=== PATIENT | female | born 1940 | race Caucasian/White ===

== ENCOUNTER 2017-04-25 12:29 | Emergency (ER) | payer MEDICARE, OTHER ==
[~2017-04-25 12:29] MED LIST: DRON400T2 PO; POTA10CA44 PO; WARF-67 PO; WARF2.5T85 PO
[2017-04-25 13:30] LABS: BASOPHILS % (AUTO) 1.1 % (0.0-5.0); EOSINOPHILS % (AUTO) 1.2 % (0.0-8.0); HEMATOCRIT 36.8 % (36-48); LYMPHOCYTES % (AUTO) 18.3 % (21.0-51.0); MEAN CORPUSCULAR HEMOGLOBIN 35.3 pg (27.0-33.0); MEAN CORPUSCULAR HGB CONC 34.3 g/dL (32.0-36.0); MEAN CORPUSCULAR VOLUME 102.9 fL (79-99); MONOCYTES % (AUTO) 8.4 % (3.0-13.0); PLATELET COUNT (AUTO) 188 K/uL (130-400); RED BLOOD CELL COUNT(AUTO) 3.57 MIL/uL (4.00-5.50); WHITE BLOOD COUNT (AUTO) 6.3 K/uL (4.8-10.8)
[2017-04-25 13:46] LABS: INR 2.7 (0.85-1.15); PROTHROMBIN TIME 27.8 SEC (9.6-11.6)
[2017-04-25 14:04] LABS: CREATININE 1.2 mg/dL (0.5-1.5); POTASSIUM 4.2 mmol/L (3.5-5.1)
[2017-04-25 14:08] LABS: ALBUMIN 3.6 g/dL (3.5-5.0); BILIRUBIN,TOTAL 0.5 mg/dL (0.2-1.0); TOTAL PROTEIN, SERUM 7.5 g/dL (6.0-8.3)
[2017-04-25] MEDS ORDERED: OCTYL 2-CYANOACRYLATE 1 EACH TP ONE (14:08)
[2017-04-25] MEDS ORDERED: TRAMADOL HCL 50 MG TABLET ONE (16:14)
== END 2017-04-25 16:19 | disposition home or self-care (01) ==
LOC: EDH 12:29
DX: S52.501A Unspecified fracture of the lower end of right radius, initial encounter for closed fracture (principal); S82.001A Unspecified fracture of right patella, initial encounter for closed fracture; S00.83XA Contusion of other part of head, initial encounter; S80.212A Abrasion, left knee, initial encounter; S50.812A Abrasion of left forearm, initial encounter; Z95.0 Presence of cardiac pacemaker; Z88.0 Allergy status to penicillin; W01.0XXA Fall on same level from slipping, tripping and stumbling without subsequent striking against object, initial encounter; Y93.89 Activity, other specified; Y92.89 Other specified places as the place of occurrence of the external cause; Y99.8 Other external cause status
CPT/HCPCS: 29125; 29505; 36415; 70450; 72125; 73110; 73562; 80053; 85025; 85610; 85730

== ENCOUNTER → 2017-08-18 | Outpatient (CLI) | payer MEDICARE | END | disposition home or self-care (01) | LOC: SHCH 10:57 | PROVIDERS: ATTEND Internal Medicine Cardiovascular Disease | DX: I34.0 Nonrheumatic mitral (valve) insufficiency (principal); Z95.0 Presence of cardiac pacemaker; Z95.2 Presence of prosthetic heart valve | CPT/HCPCS: 93306 ==

== ENCOUNTER → 2017-11-26 | Outpatient (CLI) | payer MEDICARE ==
[2017-11-26 10:55] LABS: ALBUMIN 3.6 g/dL (3.5-5.0); BILIRUBIN,TOTAL 0.7 mg/dL (0.2-1.0); CREATININE 1.1 mg/dL (0.5-1.5); POTASSIUM 4.4 mmol/L (3.5-5.1); TOTAL PROTEIN, SERUM 7.8 g/dL (6.0-8.3)
== END | disposition home or self-care (01) ==
LOC: LAB 09:53
PROVIDERS: ATTEND Nurse Practitioner Family
DX: R20.9 Unspecified disturbances of skin sensation (principal)
CPT/HCPCS: 36415; 80053; 82330

== ENCOUNTER → 2018-03-04 | Outpatient (CLI) | payer MEDICARE ==
[~2018-03-04] VITALS: Ht 157.5 cm; Wt 44.9 kg
[~2018-03-04] MED LIST changes: +REGADENOSON 0.4 MG/5 ML PF SYG IVP SCH
== END | disposition home or self-care (01) ==
LOC: SHCH 08:45
PROVIDERS: ATTEND Internal Medicine Cardiovascular Disease
DX: I25.10 Atherosclerotic heart disease of native coronary artery without angina pectoris (principal)
CPT/HCPCS: 78452; 93017; 96374; A9500 ×2; J2785

== ENCOUNTER 2018-03-23 05:28 | Observation (INO) | payer MEDICARE ==
[~2018-03-23] VITALS: Ht 157.5 cm; Wt 43.9 kg
[~2018-03-23 05:28] MED LIST changes: -REGADENOSON 0.4 MG/5 ML PF SYG IVP SCH
[2018-03-23 05:54] LABS: BILIRUBIN,URINE Negative (NEGATIVE); COLOR,URINE Yellow (YELLOW); GLUCOSE, URINE (UA) Negative (NEGATIVE); KETONES,URINE Trace mg/dL (NEGATIVE); LEUKOCYTE ESTERASE ,URINE Negative (NEGATIVE); NITRATE,URINE Negative (NEGATIVE); OCCULT BLOOD,URINE Negative (NEGATIVE); PH,URINE 8.5 (5.0-8.0); PROTEIN,URINE Negative (NEGATIVE)
[2018-03-23 05:55] LABS: APPEARANCE,URINE CLEAR (CLEAR)
[2018-03-23 06:00] LABS: BASOPHILS % (AUTO) 0.7 % (0.0-5.0); EOSINOPHILS % (AUTO) 0.4 % (0.0-8.0); HEMATOCRIT 38.2 % (36-48); LYMPHOCYTES % (AUTO) 10.1 % (21.0-51.0); MEAN CORPUSCULAR HEMOGLOBIN 34.6 pg (27.0-33.0); MEAN CORPUSCULAR VOLUME 101.8 fL (79-99); MONOCYTES % (AUTO) 8.2 % (3.0-13.0); NEUTROPHILS % (AUTO) 80.6 % (40.0-77.0); PLATELET COUNT (AUTO) 222 K/uL (130-400); RED BLOOD CELL COUNT(AUTO) 3.75 MIL/uL (4.00-5.50); RED CELL DISTRIBUTION WIDTH 12.5 % (11.0-15.5); WHITE BLOOD COUNT (AUTO) 7.6 K/uL (4.8-10.8)
[2018-03-23] MEDS ORDERED: SODIUM CHLORIDE 0.9% 1000ML 1,000 ML IV ONE (06:02)
[2018-03-23] MEDS ORDERED: ONDANSETRON HCL 4 MG/2 ML VIAL ONE (06:02)
[2018-03-23] MEDS ORDERED: MORPHINE SULFATE 4 MG/1ML SYG ONE (06:03)
[2018-03-23 06:11] LABS: CREATININE 1.1 mg/dL (0.5-1.5)
[2018-03-23 06:16] LABS: ALBUMIN 3.9 g/dL (3.5-5.0); BILIRUBIN,TOTAL 1.4 mg/dL (0.2-1.0)
[2018-03-23] MEDS ORDERED: ONDANSETRON ODT 4 MG TAB ONE (06:58)
[2018-03-23] MEDS ORDERED: KETOROLAC TROMETHAMINE 15MG/ML ONE (06:58)
[2018-03-23] MEDS ORDERED: LIDOCAINE HCL 2% VISCOUS 15 ML UDCUP ONE (07:20)
[2018-03-23] MEDS: SODIUM CHLORIDE 0.9% 1000ML 1,000 ML IV SCH (08:00)
[2018-03-23 09:06] VITALS: BP 128/60
[2018-03-23] MEDS ORDERED: DORZ10DR19 OU (12:06)
[2018-03-23] MEDS ORDERED: HYDR-3421 PO (12:06)
[2018-03-23] MEDS ORDERED: NETA2.5D OP (12:06)
[2018-03-23] MEDS ORDERED: METO-408 PO (12:06)
[2018-03-23] MEDS ORDERED: BENZ-51 PO (12:06)
[2018-03-23] MEDS ORDERED: TIMO.5OS OD (12:06)
[2018-03-23] MEDS ORDERED: AZIT250T9 PO (12:06)
[2018-03-23] MEDS ORDERED: LATA7.5D OU (12:06)
[2018-03-23] MEDS ORDERED: LORAZEPAM 1 MG TABLET PO PRN (12:30)
[2018-03-23 12:36] VITALS: BP 134/63
[2018-03-23] MEDS ORDERED: BENZONATATE 100 MG CAPSULE PO PRN (12:45)
[2018-03-23] MEDS ORDERED: WARF2.5T85 PO ×2 (15:17)
[2018-03-23 16:26] VITALS: BP 135/62
[2018-03-23] MEDS ORDERED: WARFARIN SODIUM 2.5 MG TAB PO SCH ×2 (16:39→19:32)
[2018-03-23] MEDS ORDERED: PHARMACY COMMUNICATION MISC SCH (16:45)
[2018-03-23] MEDS ORDERED: FOLI0.8C PO (16:55)
[2018-03-23 20:00] VITALS: BP 150/71
[2018-03-23] MEDS: METOPROLOL TARTRATE 25 MG TAB PO SCH (20:36)
[2018-03-23] MEDS: DRONEDARONE HYDROCHLORIDE 400 MG TABLET PO SCH (20:37)
[2018-03-23] MEDS: DORZOLAMIDE HCL OU SCH (20:46)
[2018-03-23] MEDS ORDERED: NETARSUDIL MESYLATE OP SCH (21:00)
[2018-03-23] MEDS ORDERED: HYDROXYZINE HCL 25 MG TABLET PO SCH (21:00)
[2018-03-23] MEDS ORDERED: LATANOPROST 2.5 ML DROPS OU SCH (21:00)
[2018-03-24] VITALS: BP 116/63
[2018-03-24 03:51] VITALS: BP 121/61
[2018-03-24 05:12] LABS: HEMATOCRIT 32.3 % (36-48); MEAN CORPUSCULAR HEMOGLOBIN 35.2 pg (27.0-33.0); MEAN CORPUSCULAR HGB CONC 34.2 g/dL (32.0-36.0); PLATELET COUNT (AUTO) 173 K/uL (130-400); RED BLOOD CELL COUNT(AUTO) 3.14 MIL/uL (4.00-5.50); RED CELL DISTRIBUTION WIDTH 12.5 % (11.0-15.5); WHITE BLOOD COUNT (AUTO) 5.2 K/uL (4.8-10.8)
[2018-03-24 05:24] LABS: BILIRUBIN,TOTAL 1.1 mg/dL (0.2-1.0); CREATININE 0.9 mg/dL (0.5-1.5); POTASSIUM 3.7 mmol/L (3.5-5.1); TOTAL PROTEIN, SERUM 6.4 g/dL (6.0-8.3)
[2018-03-24] MEDS ORDERED: PANTOPRAZOLE SODIUM 40 MG TABLET.DR PO SCH (07:30)
[2018-03-24 08:43] VITALS: BP 141/70
[2018-03-24] MEDS: DORZOLAMIDE HCL OU SCH (09:00)
[2018-03-24] MEDS: METOPROLOL TARTRATE 25 MG TAB PO SCH (09:00)
[2018-03-24] MEDS ORDERED: AZITHROMYCIN 250 MG TABLET PO SCH (09:00)
[2018-03-24] MEDS: DRONEDARONE HYDROCHLORIDE 400 MG TABLET PO SCH (09:16)
[2018-03-24 12:12] VITALS: BP 131/57
--- NOTE | 2018-03-24 14:29 | NUR ---
RD Screen - Low BMI, Coum Patient with BMI 17.7. Patient with Coumadin medication; Patient denies need for education. Patient with clear liquid diet with PO intake at 50-75%. Patient LBM 03/23/18. Patient reports no GI distress, however patient does have discomfort with NGT; NGT to be discontinued as per nursing. Patient monitored labs: Na 133, Ca 8.4, T. Bili 1.1, Alk Phos 45, Alb 3.0. RD to continue to monitor. Please notify RD as nutritional concerns arise. Thank you. Addendum: 03/24/18 at [address] RD Amended: Links added.
--- NOTE | 2018-03-24 14:35 | NUR ---
Warfarin Diet Education RD offered Warfarin diet education reference materials and handouts for patient revision. Patient refused and denied need for education as patient has received in the past. RD to follow-up. Please notify RD as nutritional concerns arise. Thank you. Addendum: 03/24/18 at [address] RD Amended: Links added.
[2018-03-24 15:42] VITALS: BP 119/60
[2018-03-24] MEDS: SODIUM CHLORIDE 0.9% 1000ML 1,000 ML IV SCH (17:20)
--- NOTE | 2018-03-24 19:30 | NUR ---
DISCHARGE PATIENT GIVEN DISCHARGE INSTRUCTIONS. PATIENT VERBALIZED UNDERSTANDING OF ALL EDUCATION GIVEN VIA TEACHBACK. INCLUDING FOLLOW UP APPOINTMENTS. IV DISCONTINUED, CATHETER INTACT. NO DISTRESS NOTED UPON DISCHARGE. ALL BELONGINGS TAKEN WITH. PATIENT LEFT VIA WHEELCHAIR TO PRIVATE CAR.
[2018-03-24] MEDS ORDERED: FOLIC ACID 1 MG TABLET PO SCH (21:00)
[2018-03-24] MEDS ORDERED: WARFARIN SODIUM 2.5 MG TAB PO SCH (21:00)
== END 2018-03-24 19:00 | disposition home or self-care (01) ==
LOC: EDH 05:28 → EDHIP 07:40 → 3BH 08:25
PROVIDERS: ADMIT Internal Medicine; ATTEND Internal Medicine
DX: K52.9 Noninfective gastroenteritis and colitis, unspecified (principal); I10 Essential (primary) hypertension; I05.9 Rheumatic mitral valve disease, unspecified; I48.91 Unspecified atrial fibrillation; K59.09 Other constipation; K80.20 Calculus of gallbladder without cholecystitis without obstruction; M43.10 Spondylolisthesis, site unspecified; K59.00 Constipation, unspecified; G47.00 Insomnia, unspecified; Z82.49 Family history of ischemic heart disease and other diseases of the circulatory system; Z83.3 Family history of diabetes mellitus; Z95.0 Presence of cardiac pacemaker; Z95.2 Presence of prosthetic heart valve; Z96.641 Presence of right artificial hip joint; Z88.0 Allergy status to penicillin; R79.89 Other specified abnormal findings of blood chemistry
CPT/HCPCS: 36415 ×2; 74018; 74176; 76700; 80053 ×2; 81003; 83690 ×2; 84484; 85025; 85027; 93005; 99284; G0378 ×35; J1885; J2405; J7030; J2270

== ENCOUNTER → 2018-06-01 | Outpatient (CLI) | payer MEDICARE ==
[~2018-06-01] MED LIST changes: +AZIT250T9 PO; +BENZ-51 PO; +DORZ10DR19 OU; +FOLI0.8C PO; +HYDR-3421 PO; +IOHEXOL-350 75 ML VIAL IV ONE; +LATA7.5D OU; +METO-408 PO; +NETA2.5D OP; +TIMO.5OS OD
== END | disposition home or self-care (01) ==
LOC: RAH 10:47
PROVIDERS: ATTEND Internal Medicine Gastroenterology
DX: K80.20 Calculus of gallbladder without cholecystitis without obstruction (principal); K76.89 Other specified diseases of liver; R93.3 Abnormal findings on diagnostic imaging of other parts of digestive tract; I51.7 Cardiomegaly; M47.815 Spondylosis without myelopathy or radiculopathy, thoracolumbar region; K74.60 Unspecified cirrhosis of liver; K57.90 Diverticulosis of intestine, part unspecified, without perforation or abscess without bleeding; I70.90 Unspecified atherosclerosis; E83.119 Hemochromatosis, unspecified
CPT/HCPCS: 74178; Q9967

== ENCOUNTER → 2018-06-16 | Outpatient (CLI) | payer MEDICARE ==
[~2018-06-16] MED LIST changes: -IOHEXOL-350 75 ML VIAL IV ONE
== END | disposition home or self-care (01) ==
LOC: RAH 14:23
PROVIDERS: ATTEND Internal Medicine
DX: M79.89 Other specified soft tissue disorders (principal); I25.10 Atherosclerotic heart disease of native coronary artery without angina pectoris; D68.69 Other thrombophilia
CPT/HCPCS: 93971

== ENCOUNTER → 2018-10-14 | Outpatient (CLI) | payer MEDICARE | END | disposition home or self-care (01) | LOC: SHCH 13:18 | PROVIDERS: ATTEND Internal Medicine Cardiovascular Disease | DX: I08.2 Rheumatic disorders of both aortic and tricuspid valves (principal); I48.0 Paroxysmal atrial fibrillation; Z79.01 Long term (current) use of anticoagulants; Z95.2 Presence of prosthetic heart valve | CPT/HCPCS: 93306 ==

== ENCOUNTER 2018-10-28 05:55 | Observation (INO) | payer MEDICARE | END 2018-10-29 16:25 | disposition home or self-care (01) | LOC: DAH 05:55 → DAHIP 05:56 → 2DH 11:26 ==

== ENCOUNTER → 2019-03-10 | Outpatient (CLI) | payer MEDICARE ==
[~2019-03-10] MED LIST changes: -AZIT250T9 PO; -BENZ-51 PO; +CHOL200013 PO; +CYAN250014 PO; +LORA10CA9 PO; +NETA2.5D OD; -NETA2.5D OP; -POTA10CA44 PO; -TIMO.5OS OD; +TIMO.5OS OU; +VITA1TAB39 PO; -WARF-67 PO
== END | disposition home or self-care (01) ==
LOC: SHCH 10:40
PROVIDERS: ATTEND Internal Medicine Cardiovascular Disease
DX: I08.3 Combined rheumatic disorders of mitral, aortic and tricuspid valves (principal); I48.0 Paroxysmal atrial fibrillation
CPT/HCPCS: 93306

== ENCOUNTER → 2019-04-06 | Outpatient (CLI) | payer MEDICARE ==
[2019-04-06] MEDS: REGADENOSON 0.4 MG/5 ML PF SYG IVP SCH (13:03)
== END | disposition home or self-care (01) ==
LOC: SHCH 07:37
PROVIDERS: ATTEND Internal Medicine Cardiovascular Disease
DX: I42.0 Dilated cardiomyopathy (principal)
CPT/HCPCS: 78452; 93017; 96374; A9500 ×2; J2785

== ENCOUNTER 2019-10-12 06:41 | Day surgery (SDC) | payer MEDICARE ==
[2019-10-10 10:03] VITALS: BP 108/60
[2019-10-10 11:16] LABS: BASOPHILS % (AUTO) 0.8 % (0.0-5.0); EOSINOPHILS % (AUTO) 0.8 % (0.0-8.0); HEMATOCRIT 35.2 % (36-48); LYMPHOCYTES % (AUTO) 23.1 % (21.0-51.0); MEAN CORPUSCULAR HEMOGLOBIN 33.3 pg (27.0-33.0); MEAN CORPUSCULAR HGB CONC 32.1 g/dL (32.0-36.0); MEAN CORPUSCULAR VOLUME 103.8 fL (79-99); MONOCYTES % (AUTO) 9.5 % (3.0-13.0); NEUTROPHILS % (AUTO) 65.6 % (40.0-77.0); PLATELET COUNT (AUTO) 145 K/uL (130-400); RED BLOOD CELL COUNT(AUTO) 3.39 MIL/uL (4.00-5.50); RED CELL DISTRIBUTION WIDTH 13.2 % (11.0-15.5); WHITE BLOOD COUNT (AUTO) 5.1 K/uL (4.8-10.8)
[2019-10-10 11:28] LABS: CREATININE 1.1 mg/dL (0.5-1.5); POTASSIUM 4.4 mmol/L (3.5-5.1)
[2019-10-10 11:39] LABS: INR 2.36 (0.85-1.15); PARTIAL THROMBOPLASTIN TIME 38.4 SEC (26.3-35.5); PROTHROMBIN TIME 24.7 SEC (9.6-11.6)
--- NOTE | 2019-10-11 15:52 | NUR ---
RE: ELEVATED INR INFORMED MAXIMO LYON OF INR 2.36 AND PATIENT ON WARFARIN. RECEIVED ORDERS TO REDRAW INR IN AM OF PROCEDURE.
[2019-10-12] VITALS (9 sets, daily range): BP systolic 111–129; BP diastolic 46–65
[~2019-10-12] VITALS: Ht 154.9 cm; Wt 42.0 kg
[~2019-10-12 06:41] MED LIST changes: +SODIUM CHLORIDE 0.9% 1000ML 1,000 ML IV SCH; -TIMO.5OS OU; +VANCOMYCIN 1GM+NS 250ML 250 ML IV SCH; +WARF1TAB83 PO; -WARF2.5T85 PO
[2019-10-12 07:14] LABS: INR 1.4 (0.85-1.15); PROTHROMBIN TIME 14.9 SEC (9.6-11.6)
[2019-10-12] MEDS ORDERED: BUPIVACAINE/PF 0.25% 30ML VIAL IJ ONE (07:34)
[2019-10-12] MEDS ORDERED: MIDAZOLAM HCL 1 MG/ML 2ML VIAL ONE ×6 (07:34→12:11)
[2019-10-12] MEDS ORDERED: MEPERIDINE-PF 50 MG/ML SYG ONE (07:34)
[2019-10-12] MEDS ORDERED: IOHEXOL-350 50ML VIAL IV ONE (07:34)
[2019-10-12] MEDS ORDERED: LIDOCAINE HCL 1% MDV 50ML VIAL ONE (07:36)
[2019-10-12] MEDS ORDERED: VANCOMYCIN 1GM+NS 250ML 500 ML IV ONE (08:00)
[2019-10-12] MEDS ORDERED: MEPERIDINE-PF 25 MG/ML SYG ONE ×4 (08:44→12:10)
[2019-10-12] MEDS ORDERED: THROMBIN-JMI 5000 UNIT/VIAL TP ONE (12:31)
[2019-10-12] MEDS ORDERED: ACETAMINOPHEN-CODEINE 300/30MG TAB PO PRN (13:30)
[2019-10-12] MEDS ORDERED: TRAM50TA4 PO (13:40)
--- NOTE | 2019-10-12 16:50 | NUR ---
dc dc instructions given to pts daughter over the phone, instructed to keep pressure dressing to left upper chest dry and intact, left arm sling in place . no bleeding or hematoma to site. instructed to f/u with dr. james 10/13/19 at 1030 am. she verbalized understanding , icd booklet and rx given to pt daughter.
--- NOTE | 2019-10-12 17:20 | NUR ---
dc pt dc home via [facility], no distress noted. left upper chest dressing dry and intact, pt denied any pain or discomforts. states feels sleepy, pt accompanied by daughter Caroline,
== END 2019-10-12 17:20 | disposition home or self-care (01) ==
LOC: DAH 06:41
PROVIDERS: ATTEND Internal Medicine Cardiovascular Disease
DX: T82.110A Breakdown (mechanical) of cardiac electrode, initial encounter (principal); I49.5 Sick sinus syndrome; I42.8 Other cardiomyopathies; I48.0 Paroxysmal atrial fibrillation; I10 Essential (primary) hypertension; E78.5 Hyperlipidemia, unspecified; Z79.82 Long term (current) use of aspirin; Z79.01 Long term (current) use of anticoagulants; Z79.899 Other long term (current) drug therapy; Y83.8 Other surgical procedures as the cause of abnormal reaction of the patient, or of later complication, without mention of misadventure at the time of the procedure
CPT/HCPCS: 33208; 33234; 36415 ×2; 80048; 85025; 85610 ×2; 85730; 93005; A4215; A4216; A4221; A4222; A4223 ×3; A4606; A4663; C1769 ×2; C1785; C1898 ×2; J2175 ×5; J2250 ×6; J3370; J3490 ×3; J7030; Q9967; 99156; 99157

== ENCOUNTER → 2020-01-25 | Outpatient (CLI) | payer MEDICARE ==
[~2020-01-25] MED LIST changes: +IOHEXOL-350 75 ML VIAL IV ONE; -SODIUM CHLORIDE 0.9% 1000ML 1,000 ML IV SCH; +TRAM50TA4 PO; -VANCOMYCIN 1GM+NS 250ML 250 ML IV SCH; -WARF1TAB83 PO
== END | disposition home or self-care (01) ==
LOC: RAH 09:45
PROVIDERS: ATTEND Internal Medicine Gastroenterology
DX: K80.20 Calculus of gallbladder without cholecystitis without obstruction (principal); K76.89 Other specified diseases of liver; K44.9 Diaphragmatic hernia without obstruction or gangrene; N28.1 Cyst of kidney, acquired; M43.17 Spondylolisthesis, lumbosacral region; J90 Pleural effusion, not elsewhere classified; I51.7 Cardiomegaly; J98.11 Atelectasis; R19.7 Diarrhea, unspecified
CPT/HCPCS: 74178; Q9967

== ENCOUNTER 2020-02-03 08:36 | Emergency (ER) | payer MEDICARE ==
[~2020-02-03 08:36] MED LIST changes: -IOHEXOL-350 75 ML VIAL IV ONE
[2020-02-03 09:36] LABS: BASOPHILS % (AUTO) 0.8 % (0.0-5.0); EOSINOPHILS % (AUTO) 0.6 % (0.0-8.0); HEMATOCRIT 34.7 % (36-48); LYMPHOCYTES % (AUTO) 23.2 % (21.0-51.0); MEAN CORPUSCULAR HEMOGLOBIN 32.3 pg (27.0-33.0); MEAN CORPUSCULAR HGB CONC 32.9 g/dL (32.0-36.0); MEAN CORPUSCULAR VOLUME 98.3 fL (79-99); MONOCYTES % (AUTO) 9.8 % (3.0-13.0); NEUTROPHILS % (AUTO) 65.4 % (40.0-77.0); PLATELET COUNT (AUTO) 151 K/uL (130-400); RED BLOOD CELL COUNT(AUTO) 3.53 MIL/uL (4.00-5.50); RED CELL DISTRIBUTION WIDTH 12.9 % (11.0-15.5)
[2020-02-03 09:44] LABS: CREATININE 1.1 mg/dL (0.5-1.5); POTASSIUM 4.1 mmol/L (3.5-5.1)
[2020-02-03 09:49] LABS: ALBUMIN 3.5 g/dL (3.5-5.0); BILIRUBIN,TOTAL 0.7 mg/dL (0.2-1.0); TOTAL PROTEIN, SERUM 7.5 g/dL (6.0-8.3)
[2020-02-03 09:55] LABS: INR 1.61 (0.85-1.15); PARTIAL THROMBOPLASTIN TIME 33.5 SEC (26.3-35.5); PROTHROMBIN TIME 17.1 SEC (9.6-11.6)
[2020-02-03 10:06] LABS: APPEARANCE,URINE Cloudy (CLEAR); BILIRUBIN,URINE Negative (NEGATIVE); COLOR,URINE Yellow (YELLOW); GLUCOSE, URINE (UA) Negative (NEGATIVE); KETONES,URINE Negative (NEGATIVE); LEUKOCYTE ESTERASE ,URINE Large (NEGATIVE); NITRATE,URINE Negative (NEGATIVE); OCCULT BLOOD,URINE Negative (NEGATIVE); PH,URINE 5.5 (5.0-8.0); PROTEIN,URINE Negative (NEGATIVE); UROBILINOGEN,URINE 0.2 mg/dL (0.2-1.0)
[2020-02-03 10:32] LABS: BACTERIA,URINE Moderate /HPF (None Seen); MUCUS,URINE Few LPF (None Seen); RBC,URINE None Seen /HPF (0-1); RENAL EPITHELIAL CELLS,URINE Rare /HPF (None Seen); SQUAMOUS EPITHELIAL CELL,UR 30-50 /HPF (0-2); TRANSITIONAL EPI CELLS,URINE Moderate /HPF (None Seen)
[2020-02-03] MEDS ORDERED: LEVOFLOXACIN 500 MG TABLET ONE (14:04)
[2020-02-03] MEDS ORDERED: SODIUM CHLORIDE 0.9% 500ML 500 ML IV ONE (14:05)
[2020-02-03] MEDS ORDERED: DIGOXIN 250 MCG/ML 2ML AMP ONE (17:43)
== END 2020-02-03 18:29 | disposition home or self-care (01) ==
LOC: EDH 08:36
DX: A09 Infectious gastroenteritis and colitis, unspecified (principal); Z95.0 Presence of cardiac pacemaker; Z88.0 Allergy status to penicillin; Z88.8 Allergy status to other drugs, medicaments and biological substances
CPT/HCPCS: 36415; 71045; 80053; 80162; 81001; 82270; 82550; 84484; 85025; 85610; 85730; 87088; 87507; 93005; 96374; 99285; J1160; J7040

== ENCOUNTER → 2020-06-14 | Outpatient (CLI) | payer MEDICARE | END | disposition home or self-care (01) | LOC: SHCH 13:06 | PROVIDERS: ATTEND Internal Medicine Cardiovascular Disease | DX: I08.8 Other rheumatic multiple valve diseases (principal); I25.10 Atherosclerotic heart disease of native coronary artery without angina pectoris; Z95.3 Presence of xenogenic heart valve | CPT/HCPCS: 93306 ==

== ENCOUNTER 2020-12-05 08:29 | Emergency (ER) | payer MEDICARE ==
[~2020-12-05] VITALS: Ht 157.5 cm; Wt 39.9 kg
[~2020-12-05 08:29] MED LIST changes: -DRON400T2 PO; +DRON400T7 PO
[2020-12-05 09:19] LABS: BASOPHILS % (AUTO) 0.6 % (0.0-5.0); EOSINOPHILS % (AUTO) 0.4 % (0.0-8.0); HEMATOCRIT 31.3 % (36-48); LYMPHOCYTES % (AUTO) 20.9 % (21.0-51.0); MEAN CORPUSCULAR HEMOGLOBIN 32.5 pg (27.0-33.0); MEAN CORPUSCULAR HGB CONC 32.6 g/dL (32.0-36.0); MEAN CORPUSCULAR VOLUME 99.7 fL (79-99); MONOCYTES % (AUTO) 7.9 % (3.0-13.0); NEUTROPHILS % (AUTO) 69.8 % (40.0-77.0); PLATELET COUNT (AUTO) 163 K/uL (130-400); RED BLOOD CELL COUNT(AUTO) 3.14 MIL/uL (4.00-5.50); RED CELL DISTRIBUTION WIDTH 13.4 % (11.0-15.5); WHITE BLOOD COUNT (AUTO) 4.9 K/uL (4.8-10.8)
[2020-12-05 09:28] LABS: CREATININE 1.1 mg/dL (0.5-1.5); POTASSIUM 4.2 mmol/L (3.5-5.1)
[2020-12-05 09:33] LABS: ALBUMIN 3.2 g/dL (3.5-5.0); BILIRUBIN,TOTAL 0.5 mg/dL (0.2-1.0); TOTAL PROTEIN, SERUM 7.1 g/dL (6.0-8.3)
[2020-12-05 11:41] VITALS: BP 118/63
[2020-12-05] MEDS ORDERED: MECL-226 PO (12:12)
== END 2020-12-05 12:22 | disposition home or self-care (01) ==
LOC: EDH 08:29
DX: R42 Dizziness and giddiness (principal); H83.09 Labyrinthitis, unspecified ear; Z88.0 Allergy status to penicillin; Z88.8 Allergy status to other drugs, medicaments and biological substances; Z79.899 Other long term (current) drug therapy; Z98.890 Other specified postprocedural states
CPT/HCPCS: 36415; 70450; 80053; 85025; 87077; 87088; 87186; 93005

== ENCOUNTER → 2021-02-03 | Outpatient (CLI) | payer MEDICARE ==
[~2021-02-03] MED LIST changes: +MECL-226 PO
== END | disposition home or self-care (01) ==
LOC: SHCH 13:03
PROVIDERS: ATTEND Internal Medicine Cardiovascular Disease
DX: I73.9 Peripheral vascular disease, unspecified (principal)
CPT/HCPCS: 93925

== ENCOUNTER → 2022-04-30 | Outpatient (CLI) | payer MEDICARE ==
[2022-04-30 11:33] LABS: BASOPHILS % (AUTO) 0.9 % (0.0-5.0); EOSINOPHILS % (AUTO) 1.3 % (0.0-8.0); LYMPHOCYTES % (AUTO) 14.8 % (21.0-51.0); MEAN CORPUSCULAR HEMOGLOBIN 33.5 pg (27.0-33.0); MEAN CORPUSCULAR HGB CONC 31.4 g/dL (32.0-36.0); MEAN CORPUSCULAR VOLUME 106.9 fL (79-99); MONOCYTES % (AUTO) 10.1 % (3.0-13.0); NEUTROPHILS % (AUTO) 72.7 % (40.0-77.0); PLATELET COUNT (AUTO) 145 K/uL (130-400); RED BLOOD CELL COUNT(AUTO) 3.46 MIL/uL (4.00-5.50); RED CELL DISTRIBUTION WIDTH 14.3 % (11.0-15.5); WHITE BLOOD COUNT (AUTO) 4.7 K/uL (4.8-10.8)
[2022-04-30 11:36] LABS: CREATININE 1.3 mg/dL (0.5-1.5); POTASSIUM 3.9 mmol/L (3.5-5.1)
== END | disposition home or self-care (01) ==
LOC: LAB 10:22
PROVIDERS: ATTEND Internal Medicine Cardiovascular Disease
DX: I10 Essential (primary) hypertension (principal); M25.551 Pain in right hip; E78.5 Hyperlipidemia, unspecified
CPT/HCPCS: 36415; 80048; 83880; 85025

== ENCOUNTER 2022-05-16 10:42 | Emergency (ER) | payer MEDICARE ==
[~2022-05-16] VITALS: Ht 157.5 cm; Wt 35.4 kg
[2022-05-16 11:27] LABS: ALBUMIN 3.5 g/dL (3.5-5.0); CREATININE 1.2 mg/dL (0.5-1.5); MAGNESIUM 1.9 mg/dL (1.80-2.40); POTASSIUM 3.4 mmol/L (3.5-5.1); TOTAL PROTEIN, SERUM 7.5 g/dL (6.0-8.3)
[2022-05-16 11:31] LABS: BASOPHILS % (AUTO) 0.8 % (0.0-5.0); EOSINOPHILS % (AUTO) 0.8 % (0.0-8.0); HEMATOCRIT 33.4 % (36-48); LYMPHOCYTES % (AUTO) 11.8 % (21.0-51.0); MEAN CORPUSCULAR HEMOGLOBIN 34.1 pg (27.0-33.0); MEAN CORPUSCULAR HGB CONC 32.3 g/dL (32.0-36.0); MEAN CORPUSCULAR VOLUME 105.4 fL (79-99); NEUTROPHILS % (AUTO) 75.2 % (40.0-77.0); PLATELET COUNT (AUTO) 147 K/uL (130-400); RED BLOOD CELL COUNT(AUTO) 3.17 MIL/uL (4.00-5.50); RED CELL DISTRIBUTION WIDTH 13.9 % (11.0-15.5); WHITE BLOOD COUNT (AUTO) 5.2 K/uL (4.8-10.8)
[2022-05-16 12:21] LABS: APPEARANCE,URINE CLEAR (CLEAR); BILIRUBIN,URINE NEGATIVE (NEGATIVE); COLOR,URINE YELLOW (YELLOW); GLUCOSE, URINE (UA) NEGATIVE (NEGATIVE); KETONES,URINE NEGATIVE (NEGATIVE); LEUKOCYTE ESTERASE ,URINE NEGATIVE Leu/uL (NEGATIVE); NITRATE,URINE NEGATIVE (NEGATIVE); OCCULT BLOOD,URINE NEGATIVE (NEGATIVE); PROTEIN,URINE 30 mg/dL (NEGATIVE); UROBILINOGEN,URINE 0.2 mg/dL (0.2-1.0)
[2022-05-16 12:24] LABS: B-TYPE NATRIURETIC PEPTIDE 693 pg/mL (0-100)
[2022-05-16 12:33] LABS: MUCUS,URINE RARE LPF (None Seen); RBC,URINE 0-1 /HPF (0-1); SQUAMOUS EPITHELIAL CELL,UR RARE /HPF (0-2); WBC,URINE 0-1 /HPF (0-1)
[2022-05-16 13:18] VITALS: BP 102/57
[2022-05-16] MEDS ORDERED: POTASSIUM BICARB/CIT AC 25 MEQ TABLET.EFF PO ONE (14:30)
[2022-05-16] MEDS ORDERED: FUROSEMIDE 40MG VIAL IV ONE (14:30)
[2022-05-16] MEDS ORDERED: POTASSIUM BICARB/CIT AC 25 MEQ TABLET.EFF ONE (14:59)
[2022-05-16] MEDS ORDERED: FUROSEMIDE 40MG VIAL ONE (14:59)
== END 2022-05-16 15:19 | disposition home or self-care (01) ==
LOC: EDH 10:42
DX: R06.02 Shortness of breath (principal); E87.70 Fluid overload, unspecified; I48.91 Unspecified atrial fibrillation; I95.9 Hypotension, unspecified; Z98.890 Other specified postprocedural states; Z88.0 Allergy status to penicillin; Z88.8 Allergy status to other drugs, medicaments and biological substances
CPT/HCPCS: 99285; 96374; 71045; 83735; 84484; 80053; 83880; 85025; 83605; 81001; 36415; 93005; J1940

== ENCOUNTER 2022-07-02 14:56 | Emergency (ER) | payer MEDICARE ==
[~2022-07-02] VITALS: Ht 157.5 cm; Wt 34.0 kg
[~2022-07-02 14:56] MED LIST changes: +AMIO200T68 PO; -DRON400T7 PO; +SULF1TAB41 PO
[2022-07-02 16:29] VITALS: BP 106/70
[2022-07-02 16:33] LABS: HEMATOCRIT 34.1 % (36-48); MEAN CORPUSCULAR HEMOGLOBIN 34.4 pg (27.0-33.0); MEAN CORPUSCULAR HGB CONC 32.3 g/dL (32.0-36.0); MEAN CORPUSCULAR VOLUME 106.6 fL (79-99); PLATELET COUNT (AUTO) 124 K/uL (130-400); RED CELL DISTRIBUTION WIDTH 15.2 % (11.0-15.5); WHITE BLOOD COUNT (AUTO) 4.7 K/uL (4.8-10.8)
[2022-07-02 16:38] LABS: CREATININE 1.7 mg/dL (0.5-1.5)
[2022-07-02 16:49] LABS: ALBUMIN 3.5 g/dL (3.5-5.0); TOTAL PROTEIN, SERUM 7.5 g/dL (6.0-8.3)
[2022-07-02 17:43] LABS: APPEARANCE,URINE CLOUDY (CLEAR); BILIRUBIN,URINE NEGATIVE (NEGATIVE); COLOR,URINE LIGHT-YELLOW (YELLOW); GLUCOSE, URINE (UA) NEGATIVE (NEGATIVE); KETONES,URINE NEGATIVE (NEGATIVE); LEUKOCYTE ESTERASE ,URINE 250 Leu/uL (NEGATIVE); NITRATE,URINE NEGATIVE (NEGATIVE); OCCULT BLOOD,URINE NEGATIVE (NEGATIVE); PROTEIN,URINE NEGATIVE (NEGATIVE); UROBILINOGEN,URINE 0.2 mg/dL (0.2-1.0)
[2022-07-02 17:46] LABS: BACTERIA,URINE FEW /HPF (None Seen); MUCUS,URINE RARE LPF (None Seen); RBC,URINE 0-1 /HPF (0-1); SQUAMOUS EPITHELIAL CELL,UR FEW /HPF (0-2)
[2022-07-02] MEDS ORDERED: MELA1TAB28 PO (17:57)
[2022-07-04] MEDS ORDERED: FOSF3PAC4 PO (18:40)
[2022-07-05] MEDS ORDERED: METO-408 PO (00:17)
[2022-07-05] MEDS ORDERED: TRAZ-187 PO (00:17)
[2022-07-05] MEDS ORDERED: AMIO200T68 PO (00:17)
[2022-07-05] MEDS ORDERED: APIX2.5T PO (00:17)
[2022-07-05] MEDS ORDERED: DORZ10DR19 OP (11:15)
[2022-07-05] MEDS ORDERED: LATA2.5D14 OP (11:15)
[2022-07-05] MEDS ORDERED: FURO40TA5 PO (13:48)
== END 2022-07-02 19:37 | disposition home or self-care (01) ==
LOC: EDH 14:56
DX: R10.31 Right lower quadrant pain (principal); Z88.0 Allergy status to penicillin; Z88.8 Allergy status to other drugs, medicaments and biological substances; Z90.49 Acquired absence of other specified parts of digestive tract; Z95.2 Presence of prosthetic heart valve; Z95.810 Presence of automatic (implantable) cardiac defibrillator
CPT/HCPCS: 36415; 74176; 80053; 81001; 85027; 87088; 93005